=== PATIENT | male | born 1970 | race Caucasian/White ===

== ENCOUNTER 2017-09-24 12:34 | Observation (INO) ==
--- NOTE | 2017-09-24 13:08 | Emergency Department Note ---
Disposition Clinical Impression: Chest pain Qualifiers: Chest pain type: unspecified Qualified Code(s): R07.9 - Chest pain, unspecified Disposition: Admitted As Inpatient Condition: Good Referrals: Adiel Hurley DO [Primary Care Provider] - Forms: ED Satisfaction Letter, Work/School Release General Adult HPI - General Chief complaint: ED General Medical Stated complaint: Hypertension Time Seen by Provider: 09/24/17 12:44 Source: patient Limitations: no limitations Nursing Notes Reviewed: Yes Vital Signs Reviewed: Yes - History of Present Illness HPI Narrative: 5-6 wks of headache and chest pain. WELSH 2/10 comes and goes. Frontal. No aggrevating or alleviating factors. No previous headaches. 4/5 days of the week. Chest pain is 4-5 wks[address] Center. Radiates to both chests. Pressure. 2/10. Worse with walking and exertion. Started CPAP 4 months ago. PMH HTN Sleep anpnea Amlodipine Benecar Pain Scale: 3 - Related Data Home Medications Medication Instructions Recorded Confirmed Mucinex 09/04/16 09/04/16 Previous Rx's Medication Instructions Recorded Albuterol Sulfate [Albuterol 2 puff IH Q4HR PRN #1 unit 09/04/16 Inhaler] Ipratropium/Albuterol Neb [Duoneb] 3 ml IH Q4HR PRN #50 vial.neb 09/04/16 Nebulizer Accessories [Pillow Mask] 1 each MC PRN PRN #1 each 09/04/16 Levofloxacin [Levaquin] 750 mg PO DAILY #7 tablet 10/02/16 Allergies Allergy/AdvReac Type Severity Reaction Status Date / Time No Known Allergies Allergy Verified 07/09/15 19:59 All systems ED: reviewed and negative except as stated. Constitutional: Denies: fever, chills Cardiovascular: Reports: chest pain, dyspnea on exertion Respiratory: Reports: dyspnea. Denies: cough, wheezes Gastrointestinal: Denies: abdominal pain, nausea, vomiting Musculoskeletal: Denies: back pain Neurological: Reports: headache Endocrine: Denies: fatigue Past Medical History - Past Medical History Medical history: Reports: hyperlipidemia, hypertension Surgical history: Reports: no surgical history Psychiatric history: Reports: no psych history - Social History Smoking Status: Never smoker Smokeless Tobacco Status: No Alcohol use: Reports: none Drug use: Reports: none Physical Exam CONSTITUTIONAL: Well-appearing; well-nourished; A&O X 3, in no apparent distress HEAD: Normocephalic; atraumatic EYES: PERRL, no scleral icterus NOSE: The nose is normal in appearance without rhinorrhea NECK: No JVD or distended neck veins RESP: Normal chest excursion with respiration; breath sounds clear and equal bilaterally; no wheezes, rhonchi, or rales CARD: Regular rhythm, without murmurs, rub or gallop ABD: Non-distended; non-tender, soft, without rigidity, rebound or guarding,no pulsatile mass CHEST: No pain with palpation SKIN: Normal for age and race; warm and dry without diaphoresis ; no apparent lesions EXTREMITIES: Pulses are 2 plus and equal times 4 extremities, no peripheral edema or calf muscle pain - General Limitations: no limitations General appearance: alert, in no apparent distress Course - Reevaluation(s) Reevaluation #1: Patient had resolution of the chest pain after nitroglycerin. Patient did have a stress test approximately 6 months ago. This was before the onset of his symptoms. Due to the onset of symptoms that are new as well as his multiple risk factors the patient will be brought in for further evaluation. - Consultations Consultation #1: Discussed with Dr. Oropeza. Patient accepted for admission. Vital Signs Temperature 97.8 F 09/24/17 12:36 Pulse Rate 91 09/24/17 12:36 Respiratory Rate 20 09/24/17 12:36 Blood Pressure 183/104 09/24/17 12:36 O2 Sat by Pulse Oximetry 98 09/24/17 12:36 Temperature 97.8 F 09/24/17 12:36 Pulse Rate 79 09/24/17 14:23 Respiratory Rate 18 09/24/17 14:23 Blood Pressure 146/95 09/24/17 14:23 O2 Sat by Pulse Oximetry 95 09/24/17 14:23 Oxygen Delivery Oxygen Delivery Room Air Medical Decision Making - Medical Records Medical records reviewed: Yes I reviewed the patient's medical records. - Lab Data Lab results reviewed: Yes I reviewed the patient's lab results. Result diagrams: 09/24/17 13:24 09/24/17 13:24 Lab Results 09/24/17 09/24/17 09/24/17 Range/Units 13:24 13:24 13:24 WBC 8.6 (4.3-11.1) K/mcL RBC 4.99 (4.19-5.50) M/mcL Hgb 15.6 (12.9-16.9) g/dL Hct 45.2 (37.5-50.1) % MCV 90.6 (83.0-100.0) fL MCH 31.3 (28.0-33.3) pg MCHC 34.5 (31.6-35.5) g/dL RDW 12.8 (11.5-14.5) % Plt Count 196 (140-400) K/mcL MPV 10.8 (9.4-12.4) fL Immature Gran % 0.3 (0-4) % Seg Neutrophils % 51.4 % Lymphocytes % 37.3 % Monocytes % 9.9 % Eosinophils % 0.9 % Basophils % 0.2 % Neutrophils # 4.4 (1.6-8.9) K/mcL Lymphocytes # 3.2 (0.6-4.6) K/mcL Monocytes # 0.9 (0.0-1.3) K/mcL Eosinophils # 0.1 (0.0-0.6) K/mcL Basophils # 0.0 (0.0-0.2) K/mcL D-Dimer < 215 (0-500) ng/mLFEU Sodium (136-145) mEq/L Potassium (3.5-5.1) mEq/L Chloride (98-107) mEq/L Carbon Dioxide (23-29) mEq/L BUN (6-20) mg/dL Creatinine (0.70-1.30) mg/dL Est GFR ( Amer) (> 60) Est GFR (Non-Af Amer) (> 60) BUN/Creatinine Ratio (6-26) Glucose (70-105) mg/dL Calculated Osmolality (280-300) Calcium (8.6-10.3) mg/dL Troponin I (< 0.04) ng/mL B-Natriuretic Peptide 6 (Less than 100) pg/mL 09/24/17 09/24/17 Range/Units 13:24 13:24 WBC (4.3-11.1) K/mcL RBC (4.19-5.50) M/mcL Hgb (12.9-16.9) g/dL Hct (37.5-50.1) % MCV (83.0-100.0) fL MCH (28.0-33.3) pg MCHC (31.6-35.5) g/dL RDW (11.5-14.5) % Plt Count (140-400) K/mcL MPV (9.4-12.4) fL Immature Gran % (0-4) % Seg Neutrophils % % Lymphocytes % % Monocytes % % Eosinophils % % Basophils % % Neutrophils # (1.6-8.9) K/mcL Lymphocytes # (0.6-4.6) K/mcL Monocytes # (0.0-1.3) K/mcL Eosinophils # (0.0-0.6) K/mcL Basophils # (0.0-0.2) K/mcL D-Dimer (0-500) ng/mLFEU Sodium 141 (136-145) mEq/L Potassium 3.7 (3.5-5.1) mEq/L Chloride 108 H (98-107) mEq/L Carbon Dioxide 26 (23-29) mEq/L BUN 12 (6-20) mg/dL Creatinine 1.00 (0.70-1.30) mg/dL Est GFR ( Amer) > 60 (> 60) Est GFR (Non-Af Amer) > 60 (> 60) BUN/Creatinine Ratio 12 (6-26) Glucose 125 H (70-105) mg/dL Calculated Osmolality 293 (280-300) Calcium 9.1 (8.6-10.3) mg/dL Troponin I < 0.03 (< 0.04) ng/mL B-Natriuretic Peptide (Less than 100) pg/mL - Radiology Data Radiology results reviewed: Yes I reviewed the patient's radiology results. - EKG Data EKG #1 EKG attestation: Yes I reviewed and interpreted this EKG. EKG results narrative: EKG shows sinus rhythm with ventricular rate of 89. AL interval 212. QRS 99. QTC 378. Patient has no significant ST elevations or depressions. EKG unchanged from previous of 08/10/2009.
[2017-09-24] MEDS: Nitroglycerin 0.4 MG TAB.SUBL SL PRN ×3 (13:34→13:44)
[2017-09-24 13:44] LABS: Basophils % 0.2 %; Eosinophils # 0.1 K/mcL (0.0-0.6); Eosinophils % 0.9 %; Hematocrit 45.2 % (37.5-50.1); Hemoglobin 15.6 g/dL (12.9-16.9); Immature Granulocytes % 0.3 % (0-4); Lymphocytes # 3.2 K/mcL (0.6-4.6); Lymphocytes % 37.3 %; Mean Corpuscular HGB Conc 34.5 g/dL (31.6-35.5); Mean Corpuscular Hemoglobin 31.3 pg (28.0-33.3); Mean Corpuscular Volume 90.6 fL (83.0-100.0); Mean Platelet Volume 10.8 fL (9.4-12.4); Monocytes # 0.9 K/mcL (0.0-1.3); Monocytes % 9.9 %; Neutrophils # 4.4 K/mcL (1.6-8.9); Platelet Count 196 K/mcL (140-400); Red Blood Count 4.99 M/mcL (4.19-5.50); Red Cell Distribution Width 12.8 % (11.5-14.5); Segmented Neutrophils % 51.4 %
[2017-09-24 13:46] LABS: Calcium 9.1 mg/dL (8.6-10.3); Carbon Dioxide 26 mEq/L (23-29); Chloride 108 mEq/L (98-107); Potassium 3.7 mEq/L (3.5-5.1); Sodium 141 mEq/L (136-145)
[2017-09-24 13:52] LABS: BUN/Creatinine Ratio 12 (6-26); Blood Urea Nitrogen 12 mg/dL (6-20); Glucose 125 mg/dL (70-105); Osmolality,Calculated 293 (280-300); eGFR For African Americans > 60 (> 60); eGFR For Non-African Americans > 60 (> 60)
--- NOTE | 2017-09-24 14:47 | Emergency Department Note ---
START Narrative - START START: I examined this patient and my medical decision-making was reviewed with the Resident Physician. I agree with the documented findings, disposition and treatment plan as described except to the extent set forth below. 47 year old male presents to the ED with elevated blood pressure and concerns for pregressively worsening hypertension. Marybel states that he most recently had a stress test at [facility] about 5-6 weeeks ago whcih came back unremarkable although at that time he wasnt expreincing chest pain and states that since then he has been experincing icnreased chest pain with exertional dyspnea and has about risk factors concerning for ACS, Heart score 4. We will treat witih ASA/nitro and admit to medicnie.
--- NOTE | 2017-09-24 18:18 | Internal Med History&Physical ---
Date of Encounter: 09/29/17 Time of Encounter: 18:14 Assessment and Plan (1) Chest pain Status: Acute 47/male Multiple comorbid conditions as mentioned. Admitted with persistent chest pain. In the recent past stress test was done which was negative. Noted to have a persistent GI symptoms in terms of reflux. Plan: Admit as observation. Aspirin/Lipitor/beta spencer/nitroglycerin. Echocardiogram. Cycle troponin. Cardiac diet. Hemoglobin A1c for tomorrow morning. Basic labs for tomorrow morning. We will get opinion from cardiology. Qualifiers: Chest pain type: unspecified Qualified Code(s): R07.9 - Chest pain, unspecified (2) Epigastric pain Status: Acute Persistent ongoing epigastric pain likely secondary to the reflux disease. We will continue home medication. Plan: Nothing by mouth from midnight. Spoke to gastroenterology at length. EGD tomorrow. (3) Obesity Status: Chronic Patient is presently on night CPAP. Patient really needs bariatric surgery evaluation as outpatient. Qualifiers: Obesity type: with alveolar hypoventilation Obesity classification: adult class 3 (BMI >= 40) Serious obesity comorbidity presence: unspecified whether serious comorbidity present Body mass index: unspecified BMI Qualified Code( s): E66.2 - Morbid (severe) obesity with alveolar hypoventilation (4) Hypertension Status: Chronic Patient has issues with her labile blood pressure. We will resume his home medication. 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 Internal Medicine - H&P: HPI Chief complaint: Chest pain Admitted From: Emergency Dept Plans for Post Hospital Care: Home History of present illness: PCP: Dr. Valdes Brief past medical history: Hyperlipidemia, hypertension, morbid obesity, sleep apnea, CPAP in the night, GERD, History of present medical illness: Patient has ongoing retrosternal, nonradiating, localized chest pain for more than 6 weeks. Chest pain gets worse with the stress, movement and heavy meal. Chest pain gets relieved by rest. Patient was evaluated by his primary care provider and stress test was ordered in the recent past which was negative as per patient's conversation with me. Patient was complaining of chest pain which will get worse mainly in the night and she told that few times in the night he woke up with the reflux symptoms and had an episode of vomiting. Since yesterday night patient's chest pain is noticeably getting worse and that is the reason he came to emergency department with his for further evaluation. Patient denies shortness of breath, abdominal pain, nausea, diarrhea or constipation. Patient denies smoking/alcohol/illicit drug use. Workup in the emergency room: Patient was evaluated in the emergency room. Basic labs were drawn. Reason for admission: Chest pain to rule out ACS. Family history noncontributory Past Med Surg Social Fam HX - Past Medical History Medical history: hyperlipidemia, hypertension Psychiatric history: no psych history - Past Surgical History Surgical History: orthopedic, other - Social History Smoking Status: Never smoker Smokeless Tobacco Status: No Alcohol use: none Drug use: none - Family History Father Living Status: Cause of : [place] Hx Family Cardiac Disorders: Yes Internal Medicine - H&P: Meds Amlodipine Besylate/Benazepril [Lotrel 5-20 mg Capsule] 1 each PO DAILY [History] Fenofibrate Nanocrystallized [Triglide] 160 mg PO DAILY 09/24/17 [History] Ibuprofen [Motrin] 800 mg PO Q8H PRN 09/24/17 [History] Multivitamin [One Daily Multivitamin] 1 each PO DAILY 09/24/17 [History] Atorvastatin Calcium [Lipitor] 20 mg PO HS #30 tablet 09/25/17 [Rx] Lisinopril [Zestril] 20 mg PO DAILY #30 tablet 09/25/17 [Rx] Omeprazole 20 mg PO DAILY #30 tablet. 09/25/17 [Rx] 3 Allergy/AdvReac Type Severity Reaction Status Date / Time No Known Allergies Allergy Verified 07/09/15 19:59 All Systems PM: A 10-system review of systems was performed and is negative for pertinent findings except as documented above in the HPI. - Constitutional Constitutional: no chills, no fever(s), no night sweats - EENT Eyes: no change in vision, no discharge, no pain, no photophobia Ears: no ear discharge, no ear pain, no tinnitus Nose, mouth and throat: no dysphagia, no nasal discharge, no neck pain, no sore throat - Cardiovascular Cardiovascular ROS IM: chest pain, diaphoresis, dyspnea, dyspnea on exertion, lightheadedness, no palpitations, no syncope - Respiratory Respiratory: no cough, no dyspnea, no wheezing, no excessive phlegm production - Gastrointestinal Gastrointestinal: belching, bloating, dyspepsia, no abdominal pain, no diarrhea , no hematemesis, no hematochezia, no melena, no nausea, no vomiting - Musculoskeletal Musculoskeletal ROS IM: no numbness, no tingling - Integumentary Integumentary IM: no rash, no unusual bruising - Neurological Neurological ROS: no confusion, no convulsions, no focal weakness, no numbness, no tingling, no tremor(s) - Hematologic/Lymphatic Hematologic/Lymphatic: no easy bruising - Constitutional Vitals: Temp Pulse Resp BP Pulse Ox 97.9 F 75 16 137/86 95 09/24/17 16:04 09/24/17 16:04 09/24/17 16:04 09/24/17 16:04 09/24/17 16:04 General appearance: Present: A&O X 3, pleasant, no acute distress, answers questions appropriately - Head Head exam: Present: atraumatic, normocephalic - Eye Eye exam: Present: PERRL, conjuntiva pink, sclera anicteric Pupils: Present: PERRL - Neck Neck exam general surgery: Present: supple, trachea midline. Absent: lymphadenopathy - Respiratory Respiratory exam: Present: CTAB. Absent: accessory muscle use, rales, rhonchi, wheezes - Cardiovascular Cardiovascular exam: Present: RRR, +S1, +S2. Absent: diastolic murmur, gallop, rubs, systolic murmur - GI/Abdominal GI/Abdominal exam: Present: normal bowel sounds, soft, no peritoneal signs. Absent: distended, tenderness - Extremities Exam Extremities exam: Present: warm, radial pulses palpable and symmetrical. Absent : calf tenderness, cyanotic, pedal edema - Neurological Exam Neurological exam: Present: CN II-XII intact, oriented X3, no focal deficits. Absent: pronater drift, facial droop, speech deficit - Skin Skin exam: Present: dry, intact Internal Med - H&P Results - Labs CBC & Chem 7: 09/25/17 00:32 09/25/17 00:32
[2017-09-24] MEDS ORDERED: *HR* Morphine 2 MG/ML SYRINGE IVP PRN (18:26)
[2017-09-24] MEDS ORDERED: Naloxone 0.4 MG/ML INJ IVP PRN (18:26)
[2017-09-25 00:49] LABS: Basophils % 0.5 %; Eosinophils # 0.1 K/mcL (0.0-0.6); Eosinophils % 1.3 %; Hematocrit 43.8 % (37.5-50.1); Hemoglobin 14.9 g/dL (12.9-16.9); Immature Granulocytes % 0.6 % (0-4); Immature Platelets 6.1 % (1.1-6.1); Lymphocytes # 3.9 K/mcL (0.6-4.6); Lymphocytes % 47.2 %; Mean Corpuscular Volume 91.3 fL (83.0-100.0); Mean Platelet Volume 10.4 fL (9.4-12.4); Monocytes # 0.8 K/mcL (0.0-1.3); Monocytes % 9.3 %; Neutrophils # 3.4 K/mcL (1.6-8.9); Platelet Count 206 K/mcL (140-400); Red Cell Distribution Width 12.8 % (11.5-14.5); Segmented Neutrophils % 41.1 %
[2017-09-25 01:04] LABS: Alanine Aminotransferase 47 Units/L (7-52); Alkaline Phosphatase 90 Units/L (34-104); Aspartate Amino Transferase 23 Units/L (13-39); BUN/Creatinine Ratio 12 (6-26); Bilirubin,Total 0.8 mg/dL (0.3-1.0); Blood Urea Nitrogen 12 mg/dL (6-20); Carbon Dioxide 25 mEq/L (23-29); Chloride 109 mEq/L (98-107); Chol/HDL Ratio 5.6 (0-4.9); Cholesterol 156 mg/dL (< 200); Glucose 121 mg/dL (70-105); HDL Cholesterol 28 mg/dL (40-59); LDL Cholesterol,Calculated 84 mg/dL (0-99); Magnesium 1.9 mg/dL (1.6-2.6); Osmolality,Calculated 299 (280-300); Phosphorous 3.6 mg/dL (2.7-4.5); Potassium 3.5 mEq/L (3.5-5.1); Sodium 144 mEq/L (136-145); Triglycerides 221 mg/dL (< 150); eGFR For African Americans > 60 (> 60); eGFR For Non-African Americans > 60 (> 60)
[2017-09-25 01:06] LABS: Prothrombin Time 10.8 Seconds (9.4-12.1)
[2017-09-25 01:08] LABS: Activated Partial Thrombo Time 29.8 Seconds (26.0-36.0)
[2017-09-25] MEDS ORDERED: amLODIPine 5 MG TABLET PO SCH (09:00)
[2017-09-25] MEDS ORDERED: Aspirin Enteric Coated 81 MG Tablet PO SCH (09:00)
[2017-09-25] MEDS ORDERED: Lisinopril 20 MG TABLET PO SCH (09:00)
[2017-09-25] MEDS ORDERED: Fenofibrate 54 MG TABLET PO SCH (09:00)
--- NOTE | 2017-09-25 12:52 | Gastroenterology Consult Note ---
<Haritha Neil - Last Filed: 09/25/17 12:47> Date of Encounter: 09/25/17 Time of Encounter: 11:05 - Assessment and plan (1) Epigastric pain Status: Acute Assessment and plan: Pt presents with chest pain. He also complains of epigastric pain, reflux and occasional vomiting at night. He denies PPI. He needs EGD to rule out esophagitis/gastritis/pud as reason for chest pain. (2) Chest pain Status: Acute Assessment and plan: Cardiac work up negative will perform EGD to look for GI causes of pain. Qualifiers: Chest pain type: unspecified Qualified Code(s): R07.9 - Chest pain, unspecified - Time Spent With Patient Total time spent is greater than 50% in coordination of care (as documented) at patient's floor/unit and/or counseling patient: GI History of Present Illness - Data of Consult Patient: new to practice Consult date: 09/25/17 Requesting Physician: Galilea Michael CNP - Consult Narrative Reason for consult: chest pain History of present illness: Mr. David is a 47 year old male with a pmhx of Hyperlipidemia, hypertension , morbid obesity, sleep apnea, and GERD. Patient has ongoing retrosternal, nonradiating, localized chest pain for more than 6 weeks. Chest pain gets worse with the stress, movement and heavy meal. Chest pain gets relieved by rest. He states much worse the day of admission. He stets pain is usually worse at night and he has woken from sleep with "acid reflux coming up out his mouth and nose". He denies PPI, he takes tums at times with some relief. The patient denies shortness of breath, abdominal pain, nausea, or constipation. He has occasional diarrhea. Patient denies smoking/alcohol/illicit drug use. Troponin I negative. He reports stress test 5 months ago at [facility] which was negative. Colonoscopy: denies EGD: denies NSAIDS/ASA: ibuprofen Anticoagulants: denies Past Med Surg Social Fam HX - Past Medical History Medical history: hyperlipidemia, hypertension Psychiatric history: no psych history - Past Surgical History Surgical History: orthopedic, other - Social History Smoking Status: Never smoker Smokeless Tobacco Status: No Alcohol use: none Drug use: none - Family History Father Living Status: Cause of : [place] Hx Family Cardiac Disorders: Yes Review of Systems: GI: as per [place] GENERAL: denies fever, or chills EYES: denies yellow discoloration ENT: denies pain with swallowing or difficulty swallowing CARDIO: see HPI RESP: No Shortness of breath with exertion : denies change in color of urine NEURO: denies any weakness HEME: Denies any bruising MS: chronic joint pain SKIN: denies rash or itching PSYCH: Denies history of anxiety or depression - Constitutional Vitals: Temp Pulse Resp BP Pulse Ox 99.3 F 73 18 154/89 92 09/25/17 11:12 09/25/17 11:12 09/25/17 11:12 09/25/17 11:12 09/25/17 11:12 Exam: CONSTITUTIONAL:~alert, no acute distress.~HEAD:~normocephalic.~EYES:~no jaundice.~NECK:~no obvious swelling.~HEART:~regular rate and rhythm, no murmurs. ~LUNGS:~bilateral good air entry.~ABDOMEN:~non distended, soft, non tender, no masses palpable, no organomegaly.~RECTAL EXAM:~Deferred.~EXTREMITIES:~no clubbing, cyanosis or edema.~SKIN:~no stigmata of chronic liver disease.~ NEUROLOGIC:~no obvious focal defect.~~~~ Results - Labs CBC & Chem 7: 09/25/17 00:32 09/25/17 00:32 Labs: Last Result Calcium 9.0 mg/dL (8.6-10.3) 09/25/17 00:32 Troponin I < 0.03 ng/mL (< 0.04) 09/25/17 05:57 Triglycerides 221 mg/dL (< 150) H 09/25/17 00:32 Entire Visit Hgb 14.9 g/dL (12.9-16.9) 09/25/17 00:32 Hct 43.8 % (37.5-50.1) 09/25/17 00:32 PT 10.8 Seconds (9.4-12.1) 09/25/17 00:32 Total Bilirubin 0.8 mg/dL (0.3-1.0) 09/25/17 00:32 AST 23 Units/L (13-39) 09/25/17 00:32 ALT 47 Units/L (7-52) 09/25/17 00:32 - ABG ABG results: PT/INR, D-dimer PT 10.8 Seconds (9.4-12.1) 09/25/17 00:32 D-Dimer < 215 ng/mLFEU (0-500) 09/24/17 13:24 - Impressions Impressions Echocardiogram 09/24/17 18:28 Impressions: LVEF 55-60%. Normal LV chamber size, wall thickness and function. Mild left ventricular diastolic dysfunction. Mildly dilated right ventricle with normal function. No evidence of pulmonary hypertension identified. No significant valvular dysfunction. Left Ventricular Wall Motion: Rest Echo Findings All wall segments showed normal motion. Findings: Study Quality * Technically adequate exam. ECG Findings * Normal sinus rhythm. Left Ventricle * LVEF 55-60%. * Normal LV chamber size, wall thickness and function. * Mild left ventricular diastolic dysfunction. Right Ventricle * Mildly dilated right ventricle with normal function. Left Atrium * Mild to moderately dilated left atrium. Right Atrium * Mildly dilated right atrium. Interatrial Septum * Interatrial septum not well evaluated. Aortic Valve * Aortic valve not well visualized. * No aortic regurgitation. * No aortic stenosis. Mitral Valve * Normal mitral valve structure and function. * No mitral stenosis. * No mitral regurgitation. Tricuspid Valve * Normal tricuspid valve structure and function. * Trace tricuspid regurgitation. * No evidence of pulmonary hypertension identified. Pulmonic Valve * Normal pulmonic valve structure and function. * No pulmonic regurgitation. Aorta * Normally sized aortic root. Pericardium * The pericardium appears normal. IVC * Normal IVC dimensions and inspiratory collapse. Pulmonary Artery * Normal visualized portions of the main pulmonary artery. Consult Discharge Plan - Plan Additional Instructions: Follow up with your PCP in the next 7-10 days. Take your medications as directed. You have 3 new prescriptions at your pharmacy. Return to the ER as needed for any other problems or concerns. Eat smaller, more frequent meals. Avoid spicy, fatty, fried foods. Try to avoid coffee and sodas. Sit up for at least an hour after eating. Weight loss will help symptoms greatly. Referrals: Adiel Hurley DO [Primary Care Provider] - 09/30/17 4:45 pm Brii Sears MD [Partnered Physician] - (Office to contact patient at home with appointment. ) Prescriptions: Atorvastatin Calcium [Lipitor] 20 mg PO HS #30 tablet Lisinopril [Zestril] 20 mg PO DAILY #30 tablet Omeprazole 20 mg PO DAILY #30 tablet. <Brii Sears - Last Filed: 09/26/17 08:23> Date of Encounter: 09/25/17 Time of Encounter: 13:00 - Time Spent With Patient Total time spent is greater than 50% in coordination of care (as documented) at patient's floor/unit and/or counseling patient: GI History of Present Illness - Data of Consult Requesting Physician: Galilea Michael CNP - Consult Narrative History of present illness: Mr. David is a 47 year old male - Constitutional Vitals: Temp Pulse Resp BP Pulse Ox 98.3 F 70 20 144/86 95 09/25/17 15:54 09/25/17 15:54 09/25/17 15:54 09/25/17 15:54 09/25/17 15:54 Results - Labs CBC & Chem 7: 09/25/17 00:32 09/25/17 00:32 Labs: Last Result Calcium 9.0 mg/dL (8.6-10.3) 09/25/17 00:32 Troponin I < 0.03 ng/mL (< 0.04) 09/25/17 05:57 Triglycerides 221 mg/dL (< 150) H 09/25/17 00:32 Entire Visit Hgb 14.9 g/dL (12.9-16.9) 09/25/17 00:32 Hct 43.8 % (37.5-50.1) 09/25/17 00:32 PT 10.8 Seconds (9.4-12.1) 09/25/17 00:32 Total Bilirubin 0.8 mg/dL (0.3-1.0) 09/25/17 00:32 AST 23 Units/L (13-39) 09/25/17 00:32 ALT 47 Units/L (7-52) 09/25/17 00:32 - ABG ABG results: PT/INR, D-dimer PT 10.8 Seconds (9.4-12.1) 09/25/17 00:32 D-Dimer < 215 ng/mLFEU (0-500) 09/24/17 13:24 - Impressions Impressions Echocardiogram 12/20/17 18:28 Impressions: LVEF 55-60%. Normal LV chamber size, wall thickness and function. Mild left ventricular diastolic dysfunction. Mildly dilated right ventricle with normal function. No evidence of pulmonary hypertension identified. No significant valvular dysfunction. Left Ventricular Wall Motion: Rest Echo Findings All wall segments showed normal motion. Findings: Study Quality * Technically adequate exam. ECG Findings * Normal sinus rhythm. Left Ventricle * LVEF 55-60%. * Normal LV chamber size, wall thickness and function. * Mild left ventricular diastolic dysfunction. Right Ventricle * Mildly dilated right ventricle with normal function. Left Atrium * Mild to moderately dilated left atrium. Right Atrium * Mildly dilated right atrium. Interatrial Septum * Interatrial septum not well evaluated. Aortic Valve * Aortic valve not well visualized. * No aortic regurgitation. * No aortic stenosis. Mitral Valve * Normal mitral valve structure and function. * No mitral stenosis. * No mitral regurgitation. Tricuspid Valve * Normal tricuspid valve structure and function. * Trace tricuspid regurgitation. * No evidence of pulmonary hypertension identified. Pulmonic Valve * Normal pulmonic valve structure and function. * No pulmonic regurgitation. Aorta * Normally sized aortic root. Pericardium * The pericardium appears normal. IVC * Normal IVC dimensions and inspiratory collapse. Pulmonary Artery * Normal visualized portions of the main pulmonary artery. - Attending Attestation I examined this patient and my medical decision-making was reviewed with the Resident Physician. I agree with the documented findings, disposition and treatment plan as described except to the extent set forth below.
--- NOTE | 2017-09-25 13:00 | Anesthesia Evaluation PreOp ---
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: Other (Morbid Obesity) Other Medical History: GERD (epigastric pain, reflux and occasional vomiting at night), Other (Morbid Obesity BMI 42-) Anesthesia History: No Prior Anesthetic Complications, Past Anesthesia ( orthopedic procedures) Alcohol Use: none Drug use: none Medications and Allergies Amlodipine Besylate/Benazepril [Lotrel 5-20 mg Capsule] 1 each PO DAILY [History] Fenofibrate Nanocrystallized [Triglide] 160 mg PO DAILY 09/24/17 [History] Ibuprofen [Motrin] 800 mg PO Q8H PRN 09/24/17 [History] Multivitamin [One Daily Multivitamin] 1 each PO DAILY 09/24/17 [History] 3 Allergy/AdvReac Type Severity Reaction Status Date / Time No Known Allergies Allergy Verified 07/09/15 19:59 - Meds/Allergy Pre-op Review Medications Reviewed: Yes Allergies Reviewed: Yes Beta Blockers on Current Med List: No Anesthesia Results - Labs 09/25/17 00:32 09/25/17 00:32 Echocardiogram Name: Sabino David Date of Study: 09/24/2017 EV/EV echocardiogram Impressions: LVEF 55-60%. Normal LV chamber size, wall thickness and function. Mild left ventricular diastolic dysfunction. Mildly dilated right ventricle with normal function. No evidence of pulmonary hypertension identified. No significant valvular dysfunction. Anesthesia Exam O2 Sat Weight 148.688 kg O2 Sat by Pulse Oximetry 92 O2 Sat by Pulse Oximetry 95 O2 Sat by Pulse Oximetry 95 O2 Sat by Pulse Oximetry 98 O2 Sat by Pulse Oximetry 95 O2 Sat by Pulse Oximetry 95 O2 Sat by Pulse Oximetry 95 O2 Sat by Pulse Oximetry 98 O2 Sat by Pulse Oximetry 98 Vital Signs Temp Pulse Resp BP Pulse Ox 97.8 F 91 20 183/104 98 09/24/17 12:36 09/24/17 12:36 09/24/17 12:36 09/24/17 12:36 09/24/17 12:36 Vital Signs/O2 Sat, Most Current Temp Pulse Resp BP Pulse Ox 99.3 F 73 18 154/89 92 09/25/17 11:12 09/25/17 11:12 09/25/17 11:12 09/25/17 11:12 09/25/17 11:12 - HEENT Pupil (Motor): Pupils equal, EOMI Mallampati: III Teeth: Normal - EARLY [employer]ILDH[employer]OD A[employer] LOC: Oriented EARLY [employer]IL[employer] 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
[2017-09-25] MEDS ORDERED: *HR* Propofol 200 MG/20 ML VIAL IVP ONE (13:58)
--- NOTE | 2017-09-25 14:07 | Anesthesia Evaluation Post Op ---
Date of Encounter: 09/25/17 Time of Encounter: 14:06 - Vital Signs Vital Signs: Vital Signs/O2 Sat, Most Current Temp Pulse Resp BP Pulse Ox 99.3 F 72 18 155/91 96 09/25/17 11:12 09/25/17 13:27 09/25/17 13:27 09/25/17 13:27 09/25/17 13:27 - Lungs Lungs: Clear Ascult./Percussion - Airway Airway: Non-obstructed - Cardiovascular Regular Rate - Mental Status Mental Status: Alert & Oriented, Answers Appropriately - Pain Pain Scale: 0 Pain Scale used: Numeric (1 - 10) - Nausea Vomiting Nausea Vomiting: Not Present - Hydration Hydration: NPO - Discharge PostOp Status: Transfer Patient to floor (awake, VSS, no complications)
--- NOTE | 2017-09-25 15:28 | Discharge Summary ---
Date of Encounter: 09/25/17 Time of Encounter: 10:10 - Discharge Diagnosis (1) Chest pain Priority: Primary Status: Acute Comments: Patient presented to the emergency department after 5-6 week history of headache , chest pain, and increasing hypertension. Patient reports worsening symptoms over the last 2 weeks. with chest pain he reports shortness of breath and dyspnea on exertion. He denies any claudication, nausea. He does report diaphoresis as well. The pain is not reproducible with palpation, deep inspiration, or movement. Patient reports stress test approximately 5-6 months ago at [facility] that was negative. Echocardiogram showed preserved function with mild LV DD and no significant Valvular dysfunction. Troponins were negative. Cholesterol is within normal limits, triglycerides are mildly elevated at 221. HDL is low at 228. Patient already takes fenofibrate. Chest x-ray was negative. Patient denies chest pain since arrival. He does not wish to pursue another stress test or any other testing. Chest pain most likely due to hypertension and/or GERD symptoms. Qualifiers: Chest pain type: unspecified Qualified Code(s): R07.9 - Chest pain, unspecified (2) Epigastric pain Priority: Secondary Status: Acute Comments: Patient had EGD today. Showed grade a reflux esophagitis. Stomach was normal duodenum was normal. Discussed lifestyle modifications, weight loss, diet. Continue medications. (3) Obesity Priority: Secondary Status: Chronic Comments: Chronic. Discussed lifestyle modifications. Qualifiers: Obesity type: with alveolar hypoventilation Obesity classification: adult class 3 (BMI >= 40) Qualified Code(s): E66.2 - Morbid (severe) obesity with alveolar hypoventilation; Z68.41 - Body mass index (BMI) 40.0-44.9, adult; Z68.41 - Body mass index (BMI) 40.0-44.9, adult; Z68.41 - Body mass index (BMI) 40.0-44.9, adult; Z68.41 - Body mass index (BMI) 40.0-44.9, adult (4) Hypertension Priority: Secondary Status: Chronic Comments: Patient with recent history of hypertension. Controlled at home. Has been well controlled in the hospital with addition of lisinopril 20 mg by mouth daily. Patient denies chest pain or headache. Qualifiers: Hypertension type: essential hypertension Qualified Code(s): I10 - Essential (primary) hypertension (5) Sleep apnea Priority: Secondary Status: Chronic Qualifiers: Sleep apnea type: idiopathic sleep related nonobstructive alveolar hypoventilation Qualified Code(s): G47.34 - Idiopathic sleep related nonobstructive alveolar hypoventilation (6) DVT prophylaxis Priority: Secondary Status: Acute Comments: Patient has been ambulatory. (7) GERD with esophagitis Priority: Secondary Status: Chronic Comments: Per EGD. Omeprazole, diet and lifestyle changes. - Discharge Medications Prescriptions: Atorvastatin Calcium [Lipitor] 20 mg PO HS #30 tablet Lisinopril [Zestril] 20 mg PO DAILY #30 tablet Omeprazole 20 mg PO DAILY #30 tablet. Home Medications: Amlodipine Besylate/Benazepril [Lotrel 5-20 mg Capsule] 1 each PO DAILY [History] Fenofibrate Nanocrystallized [Triglide] 160 mg PO DAILY 09/24/17 [History] Ibuprofen [Motrin] 800 mg PO Q8H PRN 09/24/17 [History] Multivitamin [One Daily Multivitamin] 1 each PO DAILY 09/24/17 [History] Atorvastatin Calcium [Lipitor] 20 mg PO HS #30 tablet 09/25/17 [Rx] Lisinopril [Zestril] 20 mg PO DAILY #30 tablet 09/25/17 [Rx] Omeprazole 20 mg PO DAILY #30 tablet. 09/25/17 [Rx] Allergies/Adverse Reactions: 3 Allergy/AdvReac Type Severity Reaction Status Date / Time No Known Allergies Allergy Verified 07/09/15 19:59 Procedures/tests Complete & Pending: Procedures Performed prior 72 hours Category Date Time Status EV echocardiogram Routine Y 09/24/17 18:28 Completed Date of admission: 09/24/17 15:08 Primary care physician: Rosario Tanner Consults: 09/24/17 18:31 Consult to Gastroenterology [CONS] Routine Consulting Provider: Gastroenterology [facility] Reason for Consult: Possible lower and esophagitis Call Completed: Yes Discharging clinician: Galilea Michael Anticipated date of discharge: 09/25/17 - Patient Status Disposition: Home, Self-Care Condition: Good Functional capacity at discharge: independent ambulation Overall status at discharge: patient is back to baseline - Discharge Instructions Follow Up With: Adiel Hurley DO [Primary Care Provider] - 09/30/17 4:45 pm Additional Instructions: Follow up with your PCP in the next 7-10 days. Take your medications as directed. You have 3 new prescriptions at your pharmacy. Return to the ER as needed for any other problems or concerns. Eat smaller, more frequent meals. Avoid spicy, fatty, fried foods. Try to avoid coffee and sodas. Sit up for at least an hour after eating. Weight loss will help symptoms greatly. - Diet and Activity Activity: increase activity as tolerated Diet: low fat, low cholesterol Interval History: Please see assessment and plan for hospital course. Hospital course: Mr. David is a 47 year old male - Time Spent with Patient Total time spent providing and/or coordinating discharge services: Less than 30 minutes - Constitutional Vitals: Temp Pulse Resp BP Pulse Ox 99.3 F 72 18 155/91 96 09/25/17 11:12 09/25/17 13:27 09/25/17 13:27 09/25/17 13:27 09/25/17 13:27 General appearance: Present: cooperative, A&O X 3, pleasant, no acute distress, answers questions appropriately - Head Head exam: Present: atraumatic, normal inspection, normocephalic - Eye Eye exam: Present: normal appearance, conjuntiva pink, sclera anicteric - Neck Neck exam general surgery: Present: supple, trachea midline. Absent: lymphadenopathy - Respiratory Respiratory exam: Present: CTAB. Absent: accessory muscle use, rales, rhonchi, wheezes - Cardiovascular Cardiovascular exam: Present: RRR, +S1, +S2. Absent: diastolic murmur, gallop, rubs, systolic murmur - GI/Abdominal GI/Abdominal exam: Present: distended, normal bowel sounds, soft. Absent: hepatomegaly, tenderness - Extremities Exam Extremities exam: Present: normal capillary refill, warm, radial pulses palpable and symmetrical. Absent: calf tenderness, cyanotic, pedal edema, tenderness - Neurological Exam Neurological exam: Present: alert, oriented X3, no focal deficits. Absent: facial droop, speech deficit - Skin Skin exam: Present: dry, intact, normal color, warm. Absent: rash
[2017-09-25 15:56] VITALS: BP 144/86
--- NOTE | 2017-09-25 16:33 | Electrocardiograph Report ---
[place] [id number] Test Date: 2017-09-24 Pat Name: Sabino David Department: 102 Room: 3B Gender: M Inventory Planner: : 1970 Requested By: Korin Fernando Order Number: [id number] Reading MD: Fidel Diaz MD Measurements Intervals [place] Rate: 89 P: 26 TX: 212 QRS: 6 QRSD: 99 T: 37 QT: 331 QTc: 378 Interpretive Statements SINUS RHYTHM WITH FIRST DEGREE AV BLOCK Electronically Signed On 09-25-2017 16:31:37 EST by Fidel Diaz MD
== END 2017-09-25 16:43 | disposition home or self-care (01) ==
LOC: EMEROO 12:34 → 3BNU 12:34
PROVIDERS: ADMIT Internal Medicine; ATTEND Registered Nurse
PROC: ENDOEBX (2017-09-25 14:00)